=== PATIENT | male | born 1940 | race Caucasian/White ===

== ENCOUNTER 2018-02-16 09:32 | Outpatient (CLI) | payer MEDICARE ==
--- NOTE | 2018-02-16 11:18 | ULT ---
RENAL ULTRASOUND: Comparison: None. History: Chronic kidney disease. Technique: Multiplanar grayscale and color doppler images were obtained in a renal ultrasound. FINDINGS: This exam is limited secondary to patient's large body habitus. There is a large cyst in the right ki dney measuring approximately 10.0 cm in size. No hydronephrosis or shadowing calculi are seen in eith er kidney. The kidneys measures 7.4 and 10.4 cm in length on the right and left, respectively. Limited visualization of the urinary bladder is unremarkable. IMPRESSION: Large right renal cyst. POS: NANCY
== END 2018-02-16 09:33 | disposition home or self-care (01) ==
LOC: MADULT 09:32
PROVIDERS: ATTEND Internal Medicine Nephrology
DX: N18.3 Chronic kidney disease, stage 3 (moderate) (principal); N28.1 Cyst of kidney, acquired
CPT/HCPCS: 76770

== ENCOUNTER 2020-04-18 21:50 | Emergency (ER) | payer MEDICARE ==
[~2020-04-18 21:50] MED LIST: EPINEPHrine 1 MG/10 ML Abboject SYRINGE ONE; Sodium Bicarb 50 MEQ/50 ML Abboject 8.4% SYRINGE ONE; Sodium Chloride 0.9% 1,000 ML BAG ONE
== END 2020-04-19 00:01 | disposition expired ==
LOC: MADERS 21:50
DX: I46.9 Cardiac arrest, cause unspecified (principal); I25.10 Atherosclerotic heart disease of native coronary artery without angina pectoris; I11.0 Hypertensive heart disease with heart failure; I50.9 Heart failure, unspecified; E78.5 Hyperlipidemia, unspecified; E11.9 Type 2 diabetes mellitus without complications; Z79.84 Long term (current) use of oral hypoglycemic drugs; Z79.899 Other long term (current) drug therapy; Z79.82 Long term (current) use of aspirin
CPT/HCPCS: 92950; 96374; 96375; J0171; J7050